=== PATIENT | female | born 1975 | race Hispanic/Latino ===

== ENCOUNTER 2018-09-22 16:26 | Emergency (ER) | payer OTHER, SELFPAY ==
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
== END 2018-09-22 18:19 | disposition home or self-care (01) ==
LOC: ER 16:26
DX: M79.18 Myalgia, other site (principal); M25.511 Pain in right shoulder; V89.2XXA Person injured in unspecified motor-vehicle accident, traffic, initial encounter
CPT/HCPCS: 99282